=== PATIENT | female | born 1940 | race Caucasian/White ===

== ENCOUNTER 2018-08-01 12:54 | Outpatient (CLI) | payer MEDICARE, BC ==
[2018-08-01 14:33] LABS: Bilirubin Negative (Negative); Blood, Urine Negative (Negative); Glucose, Urine (Dipstick) Negative (Negative); Leukocyte Negative (Negative); Nitrite Negative (Negative); Protein, Urine (Dipstick) Negative (Neg-Trace); Specific Gravity, Urine 1.015 (1.005-1.030); Urobilinogen 0.2 mg/dL (0.2-1.0)
[2018-08-01 14:35] LABS: Clarity Clear (Clear)
[2018-08-01 14:39] LABS: #Eosinphils 0.1 thou/uL (0.0-0.7); #Lymphocytes 1.9 thou/uL (1.20-3.40); #Monocytes 0.3 thou/uL (0.11-0.59); #Neutrophils 5.8 thou/uL (1.40-6.50); %Basophils 0.3 % (0.0-1.0); %Eosinophils 0.9 % (0.0-10.0); %Lymphocytes 23.6 % (21.0-51.0); %Monocytes 3.8 % (0.0-10.0); %Neutrophils 71.4 % (42.0-75.0); Mean Corpuscular HGB CONC 33.1 g/dL (32.0-36.0); Mean Corpuscular Hemoglobin 32.6 pg (27.0-31.0); Mean Corpuscular Volume 98.5 fL (78.0-98.0); Mean Platelet Volume 7.1 fL (7.4-10.4); Platelet Count 283 thou/uL (130-400); RBC Distribution Width 11.9 % (11.5-14.5); Red Blood Cell (RBC) Count 3.98 mill/uL (4.20-5.40); White Blood Cell (WBC) Count 8.1 thou/uL (4.8-10.8)
[2018-08-01 14:47] LABS: PTT 28.6 SEC (22.9-36.1); Prothrombin Time 12.8 SEC (12.0-14.7)
[2018-08-01 14:49] LABS: Bacteria/HPF None Seen HPF (None Seen); Hyaline Casts/LPF NONE SEEN LPF (0-3 Hyaline); RBC/HPF None Seen HPF (0-3); Squamous Epithelial 0-3 HPF (0-3); WBC/HPF None Seen HPF (0-3)
[2018-08-01 14:56] LABS: Anion Gap 14 mmol/L (10-20); BUN (Urea Nitrogen) 13 mg/dL (9.8-20.1); Calc. Creatinine Clearance 0 mL/min (70-130); Calcium 9.2 mg/dL (7.8-10.44); Carbon Dioxide 26 mmol/L (23-31); Chloride 101 mmol/L (98-107); Estimated GFR-MDRD 73; Glucose 176 mg/dL (83-110); Potassium 4.9 mmol/L (3.5-5.1); Sodium 136 mmol/L (136-145)
--- NOTE | 2018-08-01 15:56 | RAD ---
TWO VIEWS CHEST: Comparison: 09-29-08 History: Pre-operative radiograph prior to operating room on 08-03-18. FINDINGS: Two views of the chest shows normal sized cardiomediastinal silhouette. There is a small hiatal herni a. There is no evidence of consolidation, mass or pleural effusion. IMPRESSION: 1. No evidence of acute cardiopulmonary disease. 2. Hiatal hernia. POS: [facility]
--- NOTE | 2018-08-01 15:58 | EKG ---
Test Reason : Blood Pressure : / mmHG Vent. Rate : 074 BPM Atrial Rate : 074 BPM P-R Int : 164 ms QRS Dur : 084 ms QT Int : 384 ms P-R-T Axes : 080 063 078 degrees QTc Int : 426 ms Normal sinus rhythm Normal ECG Confirmed by NELSON DSOUZA ([id number]) on 08/01/2018 3:58:14 PM Referred By: SABRINA Confirmed By:NELSON DSOUZA
== END 2018-08-01 12:55 | disposition home or self-care (01) ==
LOC: LABBT 12:54
PROVIDERS: ATTEND Orthopaedic Surgery Hand Surgery
DX: Z01.818 Encounter for other preprocedural examination (principal); Q74.0 Other congenital malformations of upper limb(s), including shoulder girdle; K44.9 Diaphragmatic hernia without obstruction or gangrene
CPT/HCPCS: 71046; 80048; 81001; 85025; 85610; 85730; 93005; 93010

== ENCOUNTER 2018-08-03 09:55 | Day surgery (SDC) | payer MEDICARE, BC ==
[2018-08-01 13:33] VITALS: BMI 29.2
[2018-08-03] MEDS ORDERED: CEFAZOLIN 2 GM/50 ML BAG ONE (10:57)
[2018-08-03] MEDS ORDERED: Midazolam HCl 2 mg/2 ml Vial ONE (10:57)
[2018-08-03] MEDS ORDERED: Bupivacaine PF 0.5% 30 ML VIAL ONE (12:59)
[2018-08-03] MEDS ORDERED: Betamet Acet/Betamet Na Ph 30 MG/5 ML VIAL ONE (12:59)
[2018-08-03] MEDS ORDERED: Bacitracin Zinc Ointment 30 gm TUBE ONE (12:59)
[2018-08-03] MEDS ORDERED: Fentanyl 250 MCG/5 ML VIAL ONE (13:11)
[2018-08-03] MEDS ORDERED: Dexamethasone 20 MG/5 ML VIAL ONE (14:25)
[2018-08-03] MEDS ORDERED: PROPOFOL 200 MG/20 ML VIAL ONE (14:25)
[2018-08-03] MEDS ORDERED: Ondansetron PF 4 MG/2 ML Vial ONE (14:25)
[2018-08-03] MEDS ORDERED: PHENYLEPHRINE-NS 100 MCG/ML 10 ML SYRINGE ONE (14:25)
[2018-08-03] MEDS ORDERED: ePHEDrine/0.9% NaCl/PF SYRINGE 50 mg/10 ml ONE (14:25)
[2018-08-03] MEDS ORDERED: Thrombin 5000 UNITS/5 ML VIAL ONE ×2 (14:41)
[2018-08-03] MEDS ORDERED: Ketorolac Tromethamine 30 MG/ML VIAL ONE (16:37)
[2018-08-03] MEDS ORDERED: HYDROcodone/Acetaminophen 5/325 mg Tablet ONE (17:08)
--- NOTE | 2018-08-03 17:11 | RAD ---
LEFT FOREARM TWO VIEWS: History: Radial ulnar synostosis removal. FINDINGS: A series of three intraoperative films show some bony change which is between the radius and ulna. Co mparison of examination of 04-03-18, there is a proximal ulnar fracture seen at that time. This may rep resent synostosis which developed in relation to the fracture. IMPRESSION: Bony changes between the radius and ulna. This is in the region of a previous ulnar fracture and may represent some bridging synostosis related to the injury. POS: [facility]
--- NOTE | 2018-08-06 08:51 | OP ---
DATE OF PROCEDURE: 08/03/2018 PREOPERATIVE DIAGNOSES: Heterotopic ossification with subsequent synostosis; proximal third ray dist al ulna, left forearm. POSTOPERATIVE DIAGNOSES: Heterotopic ossification with subsequent synostosis; proximal third ray dis emily ulna, left forearm. PROCEDURES PERFORMED: 1. Posterior interosseous nerve neuroplasty. 2. Osteectomy radius. 3. Osteectomy ulna. 4. Removal of synostosis and membrane ulnar to radius. 5. C-arm supervision. SPECIMEN: Heterotopic bone sent to lab. TOURNIQUET TIME: 64 minutes. BLOOD LOSS: 20 mL. FINDINGS: Left ulna had an ossification with a healed fracture extended to the radius causing block. DESCRIPTION OF PROCEDURE: After successful general endotracheal anesthesia, the patient's limb was p repped and draped. We confirmed radiographs in clinic with C-arm showing that the mass came from the ulna was more dorsal than palmar and quite a bit interosseous membrane thus proceeded to allow expos ure of the dorsal of the proximal third both the radius and ulna, as well as the interosseous membran e was indicated, which would be a modified approach to the proximal radius. Thus, we outlined zigzag incision beginning at the radial tubercle and extended distally. We exsanguinated the limb, i nflated the tourniquet to 250 mmHg pressure, began a zigzag incision. We identified the common exten sor tendon, split the tendon. They were identified deep to this, the posterior interosseous nerve fi rst by releasing the complete supinator and protecting the nerve. Then, we gently lifted the nerve o ff the bone, but found that most of heterotopic ossification was in the level of the nerves terminal bifurcation into 4 parts are going into each individual muscles. Thus, we had to gently protect thes e throughout the entire procedure. We found in the terminal muscle bellies, we could find a window o f approximately 2 cm with gentle retraction in terms of height and we used the C-arm to locate the ex act location of the ulnar synostosis to the radius. We gently elevated bluntly, the periosteum to ex pose the ulna, using K wires identified the cut angle and then performed a general osteotomy with the nerve completely protected throughout the entire time. This allowed us to elevate the great mass to the bone and after this, we achieved about 50% correction. We then noticed that there was some oste ophyte, some heterotopic bone, and connection on the deep volar surface on the radius, which was bloc jose rotation as well as some more to slightly distal along the ulna. This was also allowing using K wires, protecting the nerve gently retracting it. We were able to remove this with a small baby anh geur. After this, the patient had 90 degrees passive supination and pronation without a fixed hard e ndpoint. We could visualize the radius, rotate completely circumferentially without any evidence of problems. Samples of the heterotopic bone causing the synostosis were sent to the lab. We irrigated the area, obtained excellent hemostasis with tourniquet deflation, visualized nerve bein g protected and then saw no laceration of any of the nerve branches. The nerve had been retracted fo r short interval bursts. We placed Celestone over the distal portion of the nerve that have been exposed and was in the area o f retraction, obtained hemostasis, close only the fascia over the common extensor tendon with interru pted running 5-0 Prolene, subcutaneous closure with a running 4-0 Monocryl, and a 4-0 nylon in mattre ss pattern interrupted for the epidermal closure. Bulky dressing was applied without a splint. It w as noticed in the recovery room; however, the patient did have an intact wrist extension without eliza ation, but had weakness of only M3 digit extension and M3 extensor pollicis longus function. I have explained to the patient and the that this was from nerve retraction, the nerve tube was inta ct, so we expect recovery but may take some months. The seemed to understand this and the kathy tieaddison was prepared for discharge.
== END 2018-08-03 17:45 | disposition home or self-care (01) ==
LOC: SDC 09:55
PROVIDERS: ATTEND Orthopaedic Surgery Hand Surgery
PROC: 01S60ZZ Reposition Radial Nerve, Open Approach (ICD-10-PCS; principal; 2018-08-03)
PROC: 0PBL0ZZ Excision of Left Ulna, Open Approach (ICD-10-PCS; 2018-08-03)
PROC: 0PBJ0ZZ Excision of Left Radius, Open Approach (ICD-10-PCS; 2018-08-03)
DX: Q74.0 Other congenital malformations of upper limb(s), including shoulder girdle (principal); M24.532 Contracture, left wrist; I10 Essential (primary) hypertension; E78.00 Pure hypercholesterolemia, unspecified; E07.9 Disorder of thyroid, unspecified; Z86.73 Personal history of transient ischemic attack (TIA), and cerebral infarction without residual deficits; Z87.891 Personal history of nicotine dependence; Z87.81 Personal history of (healed) traumatic fracture; Z79.52 Long term (current) use of systemic steroids; Z79.82 Long term (current) use of aspirin; Z79.899 Other long term (current) drug therapy; Z88.2 Allergy status to sulfonamides
CPT/HCPCS: 76001; 96374; J0702; J1100; J1885; J2250; J2405; J2704; J3010; J3490; S0020

== ENCOUNTER 2019-06-21 10:24 | Outpatient (CLI) | payer MEDICARE, BC ==
--- NOTE | 2019-06-21 12:08 | BD ---
BONE DENSITOMETRY: Date: 06/21/19 HISTORY: Postmenopausal screening. FINDINGS: Lumbar Spine: BMD (g/cm2) L1 1.075 T-Score: 0.8 L2 1.188 T-Score: 1.5 L3 1.153 T-Score: 0.6 L4 1.211 T-Score: 1.4 Total 1.159 T-Score: 1.0 Left Femoral Neck: 0.860 T-Score: 0.1 Total Femur: 1.148 T-Score: 1.7 IMPRESSION: Bone mineral density of the lumbar spine and femoral neck are both within normal range. POS: [facility]
== END 2019-06-21 10:25 | disposition home or self-care (01) ==
LOC: BICMAMMO 10:24
PROVIDERS: ATTEND Internal Medicine Rheumatology
DX: M81.0 Age-related osteoporosis without current pathological fracture (principal)
CPT/HCPCS: 77080

== ENCOUNTER 2019-08-07 12:36 | Outpatient (CLI) | payer MEDICARE, BC ==
--- NOTE | 2019-08-07 12:55 | RAD ---
XR Hip Lt 2-3 View: 08/07/2019 12:00 AM CLINICAL INDICATION: Pain COMPARISON: None. FINDINGS: Fracture:No fracture. Arthropathy:Moderate osteoarthritis Incidental findings:None of significance. IMPRESSION: 1. No acute osseous abnormality. 2. Moderate osteoarthritis.
--- NOTE | 2019-08-07 15:09 | MRI ---
MRI LUMBAR SPINE NONCONTRAST: HISTORY: Lumbar radicular pain. Left hip and leg pain, x2 months. COMPARISON: 04/07/2015. FINDINGS: Straightening of normal lumbar lordosis. Vertebral body height is maintained. No fracture. Appropriat e T1 marrow signal intensity of the lumbar vertebra. No significant STIR hyperintensity to suggest vertebral body edema or ligamentous injury. Intrinsic T1 and T2 hyperintensity on the right aspect of the L1 vertebral body, compatible with hemangioma. Appropriate signal intensity of the paraspinal muscles. Appropriate signal intensity visualized solid organs. Conus medullaris terminates at the inferior aspect of L1. T12-L1:Adequate disc hydration. No significant central canal stenosis or significant neural foraminal narrowing. L1-L2:Desiccation with mild loss of disc space height. Broad-based disc bulge with a left and right p aracentral component. Ligament flavum thickening and facet hypertrophy. There is resultant mild central canal stenosis. Mild bilateral neural foraminal narrowing. L2-L3:Adequate disc hydration. No significant loss of disc space height. Mild ligament flavum thicken ing and facet hypertrophy. No significant central canal stenosis or significant neural foraminal narrowing. L3-L4:Adequate disc hydration. No significant loss of disc space height. Broad-based disc bulge, liga ment flavum thickening and facet hypertrophy result in mild to moderate central canal stenosis. Encroachment upon both subarticular zones with some mass effect upon bilateral traversing L4 nerve ro ots. Mild right foraminal narrowing. Left neural foramen is patent. L4-L5:Desiccation with severe loss of disc space height. Right hemilaminotomy defect. Broad-based dis c bulge does cause mass effect upon the left and right subarticular zone. Bilateral traversing L5 nerve roots are obscured. No significant stenosis of the thecal sac. Moderate right and moderate to s evere left foraminal narrowing. L5-S1:Desiccation with severe loss of disc space height. Broad-based disc bulge with a right subartic ular protrusion. Disc material abuts and obscures the traversing right S1 nerve roots. There is partial obscuration of the left S1 nerve root due to narrowing of the left subareolar zone. Right hem ilaminectomy defect is identified. Overall there is mild to moderate stenosis of the thecal sac. Moderate bilateral neural foraminal narrowing. IMPRESSION: 1. Right hemilaminectomy defect at L4-L5 and L5-S1. 2. Narrowing of bilateral subarticular zones at L4-L5 and L5-S1. Obscuration of bilateral traversing L5 nerve roots. Complete obscuration of the traversing right S1 nerve root. Near complete obscuration of the traversing left S1 nerve root. Evaluation is limited by technique. Consider postco ntrast imaging. When compared to the previous examination, the degree of narrowing of the left and right subarticular zones at L4-L5 and L5-S1 has not significantly changed. Transcribed Date/Time: 08/07/2019 3:20 PM
== END 2019-08-07 12:37 | disposition home or self-care (01) ==
LOC: BICMRI 12:36
PROVIDERS: ATTEND Family Medicine
DX: M54.16 Radiculopathy, lumbar region (principal); M96.1 Postlaminectomy syndrome, not elsewhere classified; M16.12 Unilateral primary osteoarthritis, left hip; M48.061 Spinal stenosis, lumbar region without neurogenic claudication; M48.07 Spinal stenosis, lumbosacral region; Z98.890 Other specified postprocedural states
CPT/HCPCS: 72148

== ENCOUNTER 2021-09-01 09:38 | Outpatient (CLI) | payer MEDICARE, BC | END 2021-09-01 09:39 | disposition home or self-care (01) | LOC: BICMAMMO 09:38 | PROVIDERS: ATTEND Internal Medicine Rheumatology | DX: M81.0 Age-related osteoporosis without current pathological fracture (principal) | CPT/HCPCS: 77080 ==